=== PATIENT | female | born 1935 | race African-American/Black ===

== ENCOUNTER 2017-03-03 01:20 | Emergency (ER) | payer OTHER ==
[~2017-03-03] VITALS: Ht 154.9 cm; Wt 58.1 kg
--- NOTE | ~2017-03-03 | EKG ---
[address] [address] [facility] [place] [address] ELECTROCARDIOGRAM REPORT Name: EMMAGIA Lu Room #: [facility]#: [id number] Admission: 03/03/17 Attend Phys: Discharge: 03/03/17 Date of : 35 Report #: [id number] THIS REPORT FOR: //name// [facility] ED Test Date: 2017-03-03 Test Time: 01:28:36 Pat Name: GIA CARTER Department: Room: Gender: F Mother Helper: BOB : 1935 Requested By: Parth Honeycutt Order Number: [id number] MD: Micky Landa Measurements Intervals [place] Rate: 93 P: 78 CA: 164 QRS: -46 QRSD: 164 T: 137 QT: 417 QTc: 519 Interpretive Statements Ventricular-paced complexes No further analysis attempted due to paced rhythm Compared to ECG 08/25/2016 04:43:04 no significant change was found Electronically Signed On 03-04-2017 12:56:13 CDT by Micky Landa [email or web address] <ELECTRONICALLY SIGNED> By: Micky Landa MD, [facility] 03/04/17 1256 7 Micky Landa MD, [facility] /EPI
[~2017-03-03 01:20] MED LIST: ACCUNEB SO1.25 MG/1; ACIPHEX 20 MG T20 MG PO; ADVAIR 500-501 EACH INH; ALBUTEROL2.5 MG/3 M INH; ASA81BEC PO; CALCIUM 500 +1 EACH PO; CALCIUM 600 +1 EAC7 PO; CALCIUM 600 +1 EACH PO; CARVEDILOL12.5 MG PO; CARVEDILOL3.125 MG PO; CLARITIN10 MG PO; COLACE100 MG PO; COMBIVENT INH; COMBIVENT RESPIM4 GM INH; COREG6.25 MG PO; COUMADIN 2 MG TA2 M1 PO; COUMADIN 3 MG TA3 M1 PO; COUMADIN 4 MG TA4 M1 PO; COUMADIN 5 MG TA5 M1 PO; FERATE240 M1 PO; FERROUS GLUCON240 MG PO; FISH OIL 1,001000 M2 PO; FLONASE 0.05%50 MCG NASAL; KLOR-CON 10 ER10 MEQ PO; KLOR-CON 1010 MEQ PO; LANOXIN 0.120.125 M1 PO; LASIX 20 MG TAB20 MG PO; LASIX 40 MG TAB40 M1 PO; LASIX 40 MG TAB40 M2 PO; LEVOCETIRIZINE D5 MG PO; LIPITOR 20 MG T20 M1 PO; LIPITOR20 MG PO; LOPRESSOR 12.12.5 MG PO; MACROBID 100 M100 M1 PO; NEXIUM 40 MG CA40 M1 PO; NEXIUM40 MG PO; NITROGLYCERIN0.4 MG SL; NORCO 5-325 TA1 EACH PO; OMEGA-31000 M1 PO; OMEPRAZOLE40 MG PO; PACERONE 200 M200 M1 PO; PREDNISONE 10 M10 M1 PO; RABEPRAZOLE SOD20 MG PO; SINGULAIR 10 MG10 M1 PO; SPIRONOLACTONE25 M1 PO; SYMBICORT160 MCG/4. INH; TRINATE TABLET1 TAB PO; TYLENOL325 MG PO; VENTOLIN HFA 1818 GM INH; VITAMIN D1000 UNI1 PO; VITAMIN D1000 UNI2 PO; ZOFRAN ODT4 MG PO
[2017-03-03] MEDS ORDERED: COUMADIN 3 MG TA3 MG PO (01:38)
[2017-03-03 01:50] LABS: ABSOLUTE NEUTROPHILS 3.7 thou/uL (1.4-8.2); BASOPHILS 0.6 % (0.0-2.0); EOSINOPHILS 2.2 % (0.0-3.0); HEMATOCRIT 37.7 % (37.0-47.0); HEMOGLOBIN 12.3 gm/dL (12.0-15.0); LYMPHOCYTES 23.6 % (24.0-44.0); MCHC 32.8 g/dL (28.0-37.0); MCV 94.6 fL (80.0-100.0); MONOCYTES 11.7 % (1.0-8.0); PLATELET COUNT 163 thou/uL (150-400); POLYS 61.9 % (36.0-66.0); RBC 3.98 mil/uL (4.20-5.00); RDW 14.7 % (10.5-14.5)
[2017-03-03 01:55] LABS: ANION GAP 7 mmol/L (7-16); BUN 26 mg/dL (7-18); CALCIUM 9.4 mg/dL (8.5-10.1); CHLORIDE 103 mmol/L (98-107); CO2 31 mmol/L (21-32); CREATININE 1.4 mg/dL (0.6-1.0); GLUCOSE 96 mg/dL (74-106); POTASSIUM 4.4 mmol/L (3.5-5.1); SODIUM 141 mmol/L (136-145)
[2017-03-03 02:04] LABS: ALBUMIN 3.5 g/dL (3.4-5.0); ALKALINE PHOSPHATASE 111 U/L (46-116); APTT 41.8 Seconds (24.5-32.8); MAGNESIUM 2.1 mg/dL (1.8-2.4); MANUAL DIFF NO; PROTIME 30.1 Seconds (9.3-11.4); SGOT 28 U/L (15-37); SGPT 27 U/L (30-65); TOTAL BILIRUBIN 0.5 mg/dL (<0.1-1.0); TOTAL PROTEIN 7.5 g/dL (6.4-8.2); TROPONIN-I < 0.04 ng/mL (<0.04-0.07)
[2017-03-03] MEDS ORDERED: TRAMADOL 50 MG50 MG PO (03:48)
[2017-03-03] MEDS ORDERED: PREDNISONE 20 M20 MG PO (03:48)
[2017-03-03] MEDS ORDERED: ROBAXIN500 MG PO (03:48)
== END 2017-03-03 04:37 | disposition home or self-care (01) ==
LOC: ER 01:20
PROVIDERS: Emergency Medicine
DX: I13.0 Hypertensive heart and chronic kidney disease with heart failure and stage 1 through stage 4 chronic kidney disease, or unspecified chronic kidney disease (principal); E11.22 Type 2 diabetes mellitus with diabetic chronic kidney disease; N18.3 Chronic kidney disease, stage 3 (moderate); I50.9 Heart failure, unspecified; M43.6 Torticollis; I48.2 Chronic atrial fibrillation; K21.9 Gastro-esophageal reflux disease without esophagitis; E03.9 Hypothyroidism, unspecified; Z88.8 Allergy status to other drugs, medicaments and biological substances; Z95.0 Presence of cardiac pacemaker; Z86.73 Personal history of transient ischemic attack (TIA), and cerebral infarction without residual deficits; Z86.718 Personal history of other venous thrombosis and embolism; Z96.641 Presence of right artificial hip joint

== ENCOUNTER 2017-07-19 12:13 | Emergency (ER) | payer OTHER ==
[~2017-07-19] VITALS: Ht 154.9 cm; Wt 59.9 kg
[~2017-07-19 12:13] MED LIST changes: +COUMADIN 3 MG TA3 MG PO; +PREDNISONE 20 M20 MG PO; +ROBAXIN500 MG PO; +TRAMADOL 50 MG50 MG PO
[2017-07-19] MEDS ORDERED: BUMEX2 MG PO (12:55)
[2017-07-19 14:24] VITALS: BP 132/72
== END 2017-07-19 14:40 | disposition home or self-care (01) ==
LOC: ER 12:13
DX: M25.512 Pain in left shoulder (principal); I13.0 Hypertensive heart and chronic kidney disease with heart failure and stage 1 through stage 4 chronic kidney disease, or unspecified chronic kidney disease; I48.2 Chronic atrial fibrillation; I50.9 Heart failure, unspecified; K21.9 Gastro-esophageal reflux disease without esophagitis; E11.22 Type 2 diabetes mellitus with diabetic chronic kidney disease; N18.3 Chronic kidney disease, stage 3 (moderate); E03.9 Hypothyroidism, unspecified; Z96.641 Presence of right artificial hip joint; Z86.718 Personal history of other venous thrombosis and embolism; Z88.8 Allergy status to other drugs, medicaments and biological substances